=== PATIENT | male | born 1970 | race Caucasian/White ===

== ENCOUNTER 2020-05-06 19:25 | Inpatient (IN) | payer MEDICAID ==
[~2020-05-06] VITALS: Ht 188 cm; Wt 109.9 kg
[2020-05-06 20:39] LABS: BASOPHILS % (AUTO) 0.2 % (0-1); EOSINOPHILS % (AUTO) 0 % (0-6); HEMATOCRIT 39.9 % (42.0-52.0); HEMOGLOBIN 13.8 g/dl (14.0-17.9); LYMPHOCYTES # (AUTO) 1.7 X10'3 (1.1-4.8); LYMPHOCYTES % (AUTO) 7.6 % (21-51); MEAN CORPUSCULAR HEMOGLOBIN 29.8 PG (27.0-31.0); MEAN CORPUSCULAR HGB CONC 34.5 g/dL (33.0-36.5); MEAN CORPUSCULAR VOLUME 86.3 FL (78-98); MEAN PLATELET VOLUME 9.6 FL (7.4-10.4); MONOCYTES # (AUTO) 1.7 X10'3 (0-0.9); MONOCYTES % (AUTO) 7.7 % (2-12); NEUTROPHILS # (AUTO) 18.6 X10'3 (1.8-7.7); NEUTROPHILS % (AUTO) 84.5 % (42-75); PLATELET COUNT 133 X10'3 (140-440); RED BLOOD COUNT 4.62 X10'6 (4.70-6.10); RED CELL DISTRIBUTION WIDTH 13.8 % (11.5-14.5)
[2020-05-06 20:57] LABS: ALANINE AMINOTRANSFERASE 33 U/L (12-78); ALBUMIN 3.1 G/DL (3.4-5.0); ALBUMIN/GLOBULIN RATIO 0.8 (1.1-1.5); ALKALINE PHOSPHATASE 91 IU/L (46-116); ANION GAP 10 (8-16); ASPARTATE AMINO TRANSFERASE 32 U/L (10-37); BILIRUBIN,TOTAL 1.9 MG/DL (0.1-1.0); BLOOD UREA NITROGEN 18 MG/DL (7-18); BUN/CREATININE RATIO 11.8 (5.4-32.0); CALCIUM 8.5 MG/DL (8.5-10.1); CHLORIDE 94 MMOL/L (99-107); CREATININE 1.53 MG/DL (0.60-1.10); GLUCOSE 138 MG/DL (70-104); LIPASE 76 U/L (73-393); SODIUM 128 MMOL/L (135-145); eGFR 48 ML/MIN
[2020-05-06 20:59] LABS: PLATELET ESTIMATE DECREASED; TOTAL CELLS COUNTED 100
[2020-05-06] MEDS ORDERED: CefTRIAXone 2gm/D5W 50ml 50 ML IV ONE (21:00)
[2020-05-06] MEDS ORDERED: normal saline 1000ML IV soln IVB ONE (21:00)
[2020-05-06] MEDS ORDERED: ketorolac tromethamine 15mg/ml inj. IV ONE (21:00)
[2020-05-06 21:03] LABS: POTASSIUM 2.8 MMOL/L (3.5-5.1)
[2020-05-06] MEDS ORDERED: iohexol 300mg/ml 100ml inj. ONE (21:04)
[2020-05-06] MEDS ORDERED: metroNIDAZOLE-Flagyl 750mg/NS 150 ML IV STA (21:23)
[2020-05-06] MEDS ORDERED: potassium Cl 20 mEq SR tablet PO STA (21:23)
[2020-05-06] MEDS ORDERED: potassium 10mEq/100ml NS w/LIDOcaine (10mg/bag) IV ONE (21:25)
[2020-05-06] MEDS ORDERED: potassium CL 10mEq/100ml bag 100 ML IV ONE (21:35)
[2020-05-06 21:59] LABS: CLARITY,URINE CLEAR (Clear); COLOR,URINE YELLOW (Yellow); GLUCOSE, URINE NEGATIVE (Neg); KETONES,URINE NEGATIVE (Neg); LEUKOCYTE ESTERASE ,URINE NEGATIVE (Neg); NITRITES, URINE NEGATIVE (Neg); OCCULT BLOOD,URINE MODERATE (Neg); PROTEIN,URINE 30 mg/dl (Neg); UROBILINOGEN,URINE 0.2 E.U/dL (0.2-1.0)
[2020-05-06 22:04] LABS: UA COLLECTION TYPE CLN CATCH MIDSTREAM
[2020-05-06 22:05] LABS: BACTERIA,URINE NONE SEEN /HPF (Neg); RBC,URINE 0-2 /HPF (0-2); SQUAMOUS EPITHELIAL CELL,UR FEW /LPF (FEW); WBC,URINE 0-4 /HPF (0-4)
[2020-05-06 22:11] LABS: URINE AMPHETAMINE SCREEN NEGATIVE (Neg); URINE BARBITUATE SCREEN NEGATIVE (Neg); URINE BENZODIAZEPINES SCREEN NEGATIVE (Neg); URINE CANNABINOID SCREEN POSITIVE (Neg); URINE COCAINE SCREEN NEGATIVE (Neg); URINE METHADONE SCREEN NEGATIVE (Neg); URINE OPIATE SCREEN NEGATIVE (Neg); URINE PHENCYCLIDINE SCREEN NEGATIVE (Neg)
[2020-05-06] MEDS ORDERED: NO HOME MEDS (22:16)
[2020-05-06] MEDS ORDERED: LIDOcaine 1% W/epiNEPHrine 1:200,000 10ml vial IJ ONE ×2 (23:25)
[2020-05-06] MEDS ORDERED: ondansetron/PF 4mg/2ml inj IV PRN (23:30)
[2020-05-06] MEDS ORDERED: morphine 2 MG/ML inj. syringe IV PRN ×2 (23:30)
[2020-05-06] MEDS ORDERED: magnesium hydroxide 30ml (MOM) UD suspension PO PRN (23:30)
[2020-05-06] MEDS ORDERED: mag hydrox/Alum hydrox/simeth 30ml oral suspension PO PRN (23:30)
[2020-05-06] MEDS: normal saline 1000ml 1,000 ML IV SCH (23:53)
[2020-05-07] MEDS: morphine 4 MG/ML inj SYRINge IV PRN ×2 (03:23→08:34)
[2020-05-07] MEDS: acetaminophen 325mg tablet PO PRN ×2 (03:34→15:41)
--- NOTE | 2020-05-07 05:06 | NUR ---
Patient brought up from ED vs 90/57 HR 88 90% RA temp 98.0
[2020-05-07 05:42] LABS: BASOPHILS % (AUTO) 0.2 % (0-1); EOSINOPHILS % (AUTO) 0 % (0-6); HEMATOCRIT 36.5 % (42.0-52.0); HEMOGLOBIN 12.6 g/dl (14.0-17.9); LYMPHOCYTES # (AUTO) 0.9 X10'3 (1.1-4.8); LYMPHOCYTES % (AUTO) 5.6 % (21-51); MEAN CORPUSCULAR HEMOGLOBIN 29.8 PG (27.0-31.0); MEAN CORPUSCULAR HGB CONC 34.4 g/dL (33.0-36.5); MEAN CORPUSCULAR VOLUME 86.4 FL (78-98); MEAN PLATELET VOLUME 10.1 FL (7.4-10.4); MONOCYTES # (AUTO) 1.4 X10'3 (0-0.9); MONOCYTES % (AUTO) 8.1 % (2-12); NEUTROPHILS # (AUTO) 14.7 X10'3 (1.8-7.7); NEUTROPHILS % (AUTO) 86.1 % (42-75); PLATELET COUNT 104 X10'3 (140-440); RED BLOOD COUNT 4.23 X10'6 (4.70-6.10); RED CELL DISTRIBUTION WIDTH 14.2 % (11.5-14.5); WHITE BLOOD COUNT 17.1 X10'3 (4.5-11.0)
--- NOTE | 2020-05-07 05:48 | NUR ---
Problems reprioritized. Patient report given, questions answered & plan of care reviewed with Gillian BALDWIN.
[2020-05-07 06:07] LABS: ALANINE AMINOTRANSFERASE 27 U/L (12-78); ALBUMIN 2.6 G/DL (3.4-5.0); ALBUMIN/GLOBULIN RATIO 0.7 (1.1-1.5); ALKALINE PHOSPHATASE 74 IU/L (46-116); ANION GAP 10 (8-16); ASPARTATE AMINO TRANSFERASE 29 U/L (10-37); BILIRUBIN,TOTAL 1.1 MG/DL (0.1-1.0); BLOOD UREA NITROGEN 16 MG/DL (7-18); CALCIUM 7.7 MG/DL (8.5-10.1); CHLORIDE 99 MMOL/L (99-107); CREATININE 1.23 MG/DL (0.60-1.10); GLUCOSE 119 MG/DL (70-104); SODIUM 134 MMOL/L (135-145); TOTAL CARBON DIOXIDE 25.1 MMOL/L (24-32); TOTAL PROTEIN 6.1 G/DL (6.4-8.2); eGFR 62 ML/MIN
[2020-05-07 06:10] LABS: POTASSIUM 2.8 MMOL/L (3.5-5.1)
--- NOTE | 2020-05-07 06:51 | NUR ---
Patient in room [facility]. I have received report from NICOLASA Sethi and had the opportunity to ask questions and assume patient care.
--- NOTE | 2020-05-07 06:55 | NUR ---
Patient in room [facility]. I have received report from Jossie BALDWIN and had the opportunity to ask questions and assume patient care.
[2020-05-07 07:00] VITALS: BP 99/70
--- NOTE | 2020-05-07 07:19 | NUR ---
Zofran, Tylenol and Morphine given NOC shift...NOC nurse did not reassessed.
[2020-05-07] MEDS: heparin, porcine 5000 units/ml vial SQ SCH ×2 (08:00→20:00)
[2020-05-07] MEDS: metroNIDAZOLE-Flagyl 500mg/NS 100 ML IV SCH ×2 (08:09→15:40)
[2020-05-07] MEDS: normal saline 1000ml 1,000 ML IV SCH ×2 (08:49→21:33)
[2020-05-07] MEDS ORDERED: HYDROcodone/acetaminophen 5mg/325mg tablet PO PRN (08:50)
--- NOTE | 2020-05-07 09:15 | NUR ---
Student Medication Administration: For this medication-pass time frame, all medication were reviewed, dispensed, administered and documented per hospital policy by Joy Student Nurse.
[2020-05-07 10:50] LABS: PLATELET ESTIMATE DECREASED; TOTAL CELLS COUNTED 100
[2020-05-07 11:50] VITALS: BP 96/61
[2020-05-07 14:25] VITALS: BP 115/65
--- NOTE | 2020-05-07 15:28 | NUR ---
PAGER ID: [phone] MESSAGE: Cesilia Forrest#[id number]- Pt has a fever 102.7, 115/65, 92%, P117. Pt's groin has become hot, hard and red. Painful to touch. Redness marked at 1510. can I get Tylenol for fever, & K protocol. K 3.1. Than you so much! Gillian Ospina
[2020-05-07] MEDS ORDERED: potassium Cl 20 mEq SR tablet PO PRN (16:55)
[2020-05-07] MEDS: K and/or MAG REPLACEMENT MC SCH ×2 (16:55→20:00)
[2020-05-07] MEDS ORDERED: magnesium Cl slow-release 64mg tablet PO PRN (16:55)
[2020-05-07] MEDS ORDERED: potassium CL 10mEq/100ml bag 100 ML IV PRN (16:55)
[2020-05-07] MEDS ORDERED: magnesium 4gm in 100ml NS 100 ML IV PRN (16:55)
[2020-05-07] MEDS: potassium Cl 20 mEq SR tablet PO PRN ×2 (17:13→21:30)
--- NOTE | 2020-05-07 17:35 | NUR ---
Problems reprioritized. Patient report given, questions answered & plan of care reviewed with NICOLASA French.
--- NOTE | 2020-05-07 18:53 | NUR ---
Problems reprioritized. Patient report given, questions answered & plan of care reviewed with Joy Armstrong.
[2020-05-07 20:00] VITALS: BP 102/68
[2020-05-07] MEDS: lactobacillus rhamnosus 10,000 MMU CELLS/CAPSULE PO SCH (21:30)
[2020-05-07] MEDS: CefTRIAXone 2gm/D5W 50ml 50 ML IV SCH (21:30)
[2020-05-07] MEDS: HYDROcodone/acetaminophen 10/325mg tab PO PRN (22:40)
[2020-05-08] MEDS: metroNIDAZOLE-Flagyl 500mg/NS 100 ML IV SCH ×4 (02:02→23:45)
[2020-05-08] MEDS: normal saline 1000ml 1,000 ML IV SCH ×3 (05:29→22:10)
--- NOTE | 2020-05-08 06:06 | NUR ---
Problems reprioritized. Patient report given, questions answered & plan of care reviewed with NICOLASA French.
[2020-05-08 06:07] LABS: BASOPHILS % (AUTO) 0.1 % (0-1); EOSINOPHILS % (AUTO) 0.4 % (0-6); HEMATOCRIT 34.7 % (42.0-52.0); LYMPHOCYTES # (AUTO) 1.1 X10'3 (1.1-4.8); LYMPHOCYTES % (AUTO) 9.7 % (21-51); MEAN CORPUSCULAR HEMOGLOBIN 29.9 PG (27.0-31.0); MEAN CORPUSCULAR HGB CONC 34.6 g/dL (33.0-36.5); MEAN CORPUSCULAR VOLUME 86.6 FL (78-98); MEAN PLATELET VOLUME 10.3 FL (7.4-10.4); MONOCYTES # (AUTO) 0.8 X10'3 (0-0.9); MONOCYTES % (AUTO) 6.9 % (2-12); NEUTROPHILS # (AUTO) 9.7 X10'3 (1.8-7.7); NEUTROPHILS % (AUTO) 82.9 % (42-75); PLATELET COUNT 80 X10'3 (140-440); RED BLOOD COUNT 4.01 X10'6 (4.70-6.10); RED CELL DISTRIBUTION WIDTH 14.1 % (11.5-14.5); WHITE BLOOD COUNT 11.7 X10'3 (4.5-11.0)
[2020-05-08 06:47] LABS: ALANINE AMINOTRANSFERASE 28 U/L (12-78); ALBUMIN 2.2 G/DL (3.4-5.0); ALBUMIN/GLOBULIN RATIO 0.6 (1.1-1.5); ALKALINE PHOSPHATASE 232 IU/L (46-116); ANION GAP 8 (8-16); ASPARTATE AMINO TRANSFERASE 23 U/L (10-37); BILIRUBIN,TOTAL 0.5 MG/DL (0.1-1.0); BLOOD UREA NITROGEN 13 MG/DL (7-18); BUN/CREATININE RATIO 11.7 (5.4-32.0); CHLORIDE 99 MMOL/L (99-107); CREATININE 1.11 MG/DL (0.60-1.10); GLUCOSE 105 MG/DL (70-104); POTASSIUM 3.3 MMOL/L (3.5-5.1); SODIUM 133 MMOL/L (135-145); TOTAL CARBON DIOXIDE 25.9 MMOL/L (24-32); TOTAL PROTEIN 5.8 G/DL (6.4-8.2); eGFR 70 ML/MIN
--- NOTE | 2020-05-08 06:58 | NUR ---
Patient in room [facility]. I have received report from Charis Morocho RN and had the opportunity to ask questions and assume patient care.
--- NOTE | 2020-05-08 07:00 | NUR ---
Patient in room [facility]. I have received report from Charis Morocho and had the opportunity to ask questions and assume patient care.
[2020-05-08 08:00] VITALS: BP 100/60
[2020-05-08] MEDS: K and/or MAG REPLACEMENT MC SCH ×2 (08:00→19:17)
[2020-05-08] MEDS: heparin, porcine 5000 units/ml vial SQ SCH ×2 (08:00→19:36)
[2020-05-08] MEDS: lactobacillus rhamnosus 10,000 MMU CELLS/CAPSULE PO SCH ×2 (09:07→19:31)
[2020-05-08] MEDS: potassium Cl 20 mEq SR tablet PO PRN ×4 (09:08→23:46)
[2020-05-08 11:00] VITALS: BP 99/62
--- NOTE | 2020-05-08 11:33 | NUR ---
Pt states he had abnormal bm when taking shower liquid stool Addendum: 05/08/20 at 1157 by Robert Grijalva STUDENT MAGDY Amended: Links added.
[2020-05-08] MEDS: HYDROcodone/acetaminophen 10/325mg tab PO PRN ×3 (13:13→23:45)
[2020-05-08 18:15] VITALS: BP 103/64
--- NOTE | 2020-05-08 18:37 | NUR ---
Problems reprioritized. Patient report given, questions answered & plan of care reviewed with Barbie Armstrong.
--- NOTE | 2020-05-08 18:52 | NUR ---
Patient in room [facility]. I have received report from NICOLASA French and had the opportunity to ask questions and assume patient care.
[2020-05-08] MEDS: CefTRIAXone 2gm/D5W 50ml 50 ML IV SCH (19:32)
[2020-05-09 00:17] VITALS: BP 97/65
[2020-05-09] MEDS: potassium Cl 20 mEq SR tablet PO PRN ×4 (03:44→20:18)
[2020-05-09 05:30] LABS: BASOPHILS % (AUTO) 0.4 % (0-1); EOSINOPHILS # (AUTO) 0.2 X10'3 (0-0.9); EOSINOPHILS % (AUTO) 2.1 % (0-6); HEMATOCRIT 34.3 % (42.0-52.0); HEMOGLOBIN 11.7 g/dl (14.0-17.9); LYMPHOCYTES # (AUTO) 0.9 X10'3 (1.1-4.8); LYMPHOCYTES % (AUTO) 9.6 % (21-51); MEAN CORPUSCULAR HEMOGLOBIN 30.1 PG (27.0-31.0); MEAN CORPUSCULAR HGB CONC 34.2 g/dL (33.0-36.5); MEAN CORPUSCULAR VOLUME 88.2 FL (78-98); MEAN PLATELET VOLUME 10.9 FL (7.4-10.4); MONOCYTES # (AUTO) 0.6 X10'3 (0-0.9); MONOCYTES % (AUTO) 6.1 % (2-12); NEUTROPHILS % (AUTO) 81.8 % (42-75); PLATELET COUNT 85 X10'3 (140-440); RED BLOOD COUNT 3.88 X10'6 (4.70-6.10); RED CELL DISTRIBUTION WIDTH 14.4 % (11.5-14.5); WHITE BLOOD COUNT 9.8 X10'3 (4.5-11.0)
[2020-05-09 05:40] LABS: ALANINE AMINOTRANSFERASE 27 U/L (12-78); ALBUMIN 2.1 G/DL (3.4-5.0); ALBUMIN/GLOBULIN RATIO 0.6 (1.1-1.5); ALKALINE PHOSPHATASE 85 IU/L (46-116); ANION GAP 2 (8-16); ASPARTATE AMINO TRANSFERASE 22 U/L (10-37); BILIRUBIN,TOTAL 0.3 MG/DL (0.1-1.0); BLOOD UREA NITROGEN 9 MG/DL (7-18); BUN/CREATININE RATIO 8.7 (5.4-32.0); CALCIUM 8.1 MG/DL (8.5-10.1); CHLORIDE 103 MMOL/L (99-107); CREATININE 1.03 MG/DL (0.60-1.10); GLUCOSE 124 MG/DL (70-104); POTASSIUM 3.3 MMOL/L (3.5-5.1); SODIUM 135 MMOL/L (135-145); TOTAL CARBON DIOXIDE 30.5 MMOL/L (24-32); TOTAL PROTEIN 5.6 G/DL (6.4-8.2); eGFR 76 ML/MIN
--- NOTE | 2020-05-09 06:39 | NUR ---
Problems reprioritized. Patient report given, questions answered & plan of care reviewed with NICOLASA Gill.
[2020-05-09 07:00] VITALS: BP 103/59
[2020-05-09 07:15] LABS: ANISOCYTOSIS 1+; PLATELET ESTIMATE DECREASED; TOTAL CELLS COUNTED 100
[2020-05-09] MEDS: heparin, porcine 5000 units/ml vial SQ SCH ×2 (08:00→19:41)
[2020-05-09] MEDS: HYDROcodone/acetaminophen 10/325mg tab PO PRN ×2 (08:24→15:47)
[2020-05-09] MEDS: lactobacillus rhamnosus 10,000 MMU CELLS/CAPSULE PO SCH ×2 (08:25→20:18)
[2020-05-09] MEDS: metroNIDAZOLE-Flagyl 500mg/NS 100 ML IV SCH (08:25)
[2020-05-09] MEDS: normal saline 1000ml 1,000 ML IV SCH ×2 (08:25→20:23)
[2020-05-09] MEDS: K and/or MAG REPLACEMENT MC SCH ×2 (08:27→18:44)
[2020-05-09] MEDS: morphine 4 MG/ML inj SYRINge IV PRN ×2 (10:00→17:39)
--- NOTE | 2020-05-09 10:00 | NUR ---
Pt. c/o several episode of diarrhea. Stated the RN assessed his BM yesterday and "thought it wasn't c-diff". made aware. Pt. has had 2 BMs today. Did not let RN assess. Educated. Pt. states BMs liquid brown. states to continue to monitor and collect sample for culture.
[2020-05-09 11:00] VITALS: BP 94/56
[2020-05-09 11:28] LABS: HEMOGLOBIN A1C 5.4 % (4.5-6.2)
[2020-05-09 11:37] LABS: CHOLESTEROL 64 MG/DL (0-200); HDL CHOLESTEROL 8 MG/DL (35-60); LDL CHOLESTEROL 33 MG/DL (50-100); TRIGLYCERIDES 104 MG/DL (20-135)
--- NOTE | 2020-05-09 12:04 | NUR ---
scrotum tissue appears to be peeling Addendum: 05/09/20 at 1210 by Robert Grijalva STUDENT MAGDY Amended: Links added.
--- NOTE | 2020-05-09 15:39 | NUR ---
Wound cultures collected and dropped off at lab.
[2020-05-09] MEDS ORDERED: metroNIDAZOLE 500mg tablet PO SCH (16:00)
[2020-05-09 18:15] VITALS: BP 104/58
--- NOTE | 2020-05-09 18:31 | NUR ---
Patient in room [facility]. I have received report from NICOLASA Gill and had the opportunity to ask questions and assume patient care.
--- NOTE | 2020-05-09 18:31 | NUR ---
Gave report to Barbie BALDWIN.
[2020-05-09] MEDS: mineral oil/petrolatum, white cream 113gm jar TP SCH (20:23)
[2020-05-09] MEDS: CefTRIAXone 2gm/D5W 50ml 50 ML IV SCH (20:23)
[2020-05-09] MEDS: CEFEPIME 2gm in D5W 50mL 50 ML IV SCH (21:24)
[2020-05-09] MEDS: clindamycin 300mg/D5W 50mL 50 ML IV SCH (21:55)
[2020-05-09] MEDS: linezolid 600mg/300ml PREMIX 300 ML IV SCH (22:54)
[2020-05-10] MEDS: morphine 4 MG/ML inj SYRINge IV PRN ×5 (00:02→22:44)
[2020-05-10 00:24] VITALS: BP 96/62
[2020-05-10] MEDS: clindamycin 300mg/D5W 50mL 50 ML IV SCH ×4 (02:36→19:07)
--- NOTE | 2020-05-10 06:00 | NUR ---
Patient in room [facility]. I have received report from NICOLASA Valentin and had the opportunity to ask questions and assume patient care.
[2020-05-10 06:17] LABS: ALANINE AMINOTRANSFERASE 21 U/L (12-78); ALBUMIN/GLOBULIN RATIO 0.5 (1.1-1.5); ALKALINE PHOSPHATASE 66 IU/L (46-116); ANION GAP 8 (8-16); ASPARTATE AMINO TRANSFERASE 25 U/L (10-37); BILIRUBIN,TOTAL 0.3 MG/DL (0.1-1.0); BLOOD UREA NITROGEN 9 MG/DL (7-18); CALCIUM 8.1 MG/DL (8.5-10.1); CHLORIDE 106 MMOL/L (99-107); GLUCOSE 124 MG/DL (70-104); MAGNESIUM 1.9 MG/DL (1.5-2.4); PHOSPHORUS 2.2 MG/DL (2.3-4.5); SODIUM 139 MMOL/L (135-145); TOTAL CARBON DIOXIDE 24.7 MMOL/L (24-32); TOTAL PROTEIN 5.7 G/DL (6.4-8.2); eGFR 89 ML/MIN
--- NOTE | 2020-05-10 06:36 | NUR ---
Problems reprioritized. Patient report given, questions answered & plan of care reviewed with NICOLASA Gomez.
[2020-05-10 06:45] LABS: BASOPHILS % (AUTO) 0.3 % (0-1); EOSINOPHILS # (AUTO) 0.2 X10'3 (0-0.9); HEMATOCRIT 34.4 % (42.0-52.0); HEMOGLOBIN 11.8 g/dl (14.0-17.9); LYMPHOCYTES % (AUTO) 11.9 % (21-51); MEAN CORPUSCULAR HEMOGLOBIN 30.1 PG (27.0-31.0); MEAN CORPUSCULAR HGB CONC 34.2 g/dL (33.0-36.5); MEAN CORPUSCULAR VOLUME 87.8 FL (78-98); MEAN PLATELET VOLUME 10.5 FL (7.4-10.4); MONOCYTES # (AUTO) 0.8 X10'3 (0-0.9); MONOCYTES % (AUTO) 9.5 % (2-12); NEUTROPHILS # (AUTO) 6.1 X10'3 (1.8-7.7); NEUTROPHILS % (AUTO) 75.3 % (42-75); PLATELET COUNT 105 X10'3 (140-440); RED BLOOD COUNT 3.91 X10'6 (4.70-6.10); RED CELL DISTRIBUTION WIDTH 14.9 % (11.5-14.5); WHITE BLOOD COUNT 8.1 X10'3 (4.5-11.0)
[2020-05-10 07:43] VITALS: BP 101/58
[2020-05-10] MEDS: normal saline 1000ml 1,000 ML IV SCH ×3 (07:46→22:45)
[2020-05-10] MEDS: lactobacillus rhamnosus 10,000 MMU CELLS/CAPSULE PO SCH ×2 (07:46→19:06)
[2020-05-10] MEDS: heparin, porcine 5000 units/ml vial SQ SCH ×2 (07:48→19:07)
[2020-05-10] MEDS: K and/or MAG REPLACEMENT MC SCH ×2 (08:00→18:51)
[2020-05-10] MEDS: mineral oil/petrolatum, white cream 113gm jar TP SCH ×2 (08:01→19:09)
[2020-05-10] MEDS: linezolid 600mg/300ml PREMIX 300 ML IV SCH (10:24)
[2020-05-10 11:58] VITALS: BP 98/60
[2020-05-10] MEDS: CEFEPIME 2gm in D5W 50mL 50 ML IV SCH ×2 (13:17→21:13)
--- NOTE | 2020-05-10 18:05 | NUR ---
Patient in room [facility]. I have received report from NICOLASA Gomez and had the opportunity to ask questions and assume patient care.
[2020-05-10 18:15] VITALS: BP 98/57
--- NOTE | 2020-05-10 18:29 | NUR ---
Problems reprioritized. Patient report given, questions answered & plan of care reviewed with NICOLASA Valentin.
[2020-05-10] MEDS: linezolid 600mg tablet PO SCH (19:06)
[2020-05-11 00:37] VITALS: BP 101/58
[2020-05-11] MEDS: clindamycin 300mg/D5W 50mL 50 ML IV SCH ×4 (01:18→19:35)
[2020-05-11 05:38] LABS: BASOPHILS % (AUTO) 0.5 % (0-1); EOSINOPHILS # (AUTO) 0.3 X10'3 (0-0.9); EOSINOPHILS % (AUTO) 4.8 % (0-6); HEMATOCRIT 34.7 % (42.0-52.0); HEMOGLOBIN 11.7 g/dl (14.0-17.9); LYMPHOCYTES % (AUTO) 18.2 % (21-51); MEAN CORPUSCULAR HEMOGLOBIN 29.7 PG (27.0-31.0); MEAN CORPUSCULAR HGB CONC 33.6 g/dL (33.0-36.5); MEAN CORPUSCULAR VOLUME 88.4 FL (78-98); MEAN PLATELET VOLUME 10.6 FL (7.4-10.4); MONOCYTES # (AUTO) 0.7 X10'3 (0-0.9); MONOCYTES % (AUTO) 11.7 % (2-12); NEUTROPHILS # (AUTO) 3.7 X10'3 (1.8-7.7); NEUTROPHILS % (AUTO) 64.8 % (42-75); PLATELET COUNT 123 X10'3 (140-440); RED BLOOD COUNT 3.93 X10'6 (4.70-6.10); RED CELL DISTRIBUTION WIDTH 14.7 % (11.5-14.5); WHITE BLOOD COUNT 5.8 X10'3 (4.5-11.0)
[2020-05-11 05:49] LABS: ALANINE AMINOTRANSFERASE 22 U/L (12-78); ALBUMIN 2.1 G/DL (3.4-5.0); ALBUMIN/GLOBULIN RATIO 0.6 (1.1-1.5); ALKALINE PHOSPHATASE 54 IU/L (46-116); ANION GAP 8 (8-16); ASPARTATE AMINO TRANSFERASE 19 U/L (10-37); BILIRUBIN,TOTAL 0.3 MG/DL (0.1-1.0); BLOOD UREA NITROGEN 7 MG/DL (7-18); BUN/CREATININE RATIO 7.2 (5.4-32.0); CALCIUM 8.1 MG/DL (8.5-10.1); CHLORIDE 107 MMOL/L (99-107); CREATININE 0.97 MG/DL (0.60-1.10); GLUCOSE 112 MG/DL (70-104); PHOSPHORUS 3.3 MG/DL (2.3-4.5); POTASSIUM 3.6 MMOL/L (3.5-5.1); SODIUM 144 MMOL/L (135-145); TOTAL CARBON DIOXIDE 28.9 MMOL/L (24-32); TOTAL PROTEIN 5.8 G/DL (6.4-8.2); eGFR 82 ML/MIN
--- NOTE | 2020-05-11 06:00 | NUR ---
Patient in room [facility]. I have received report from NICOLASA Canas and had the opportunity to ask questions and assume patient care. Addendum: 05/11/20 at 1319 by Patricia Peterson RN Addendum: Barbie BALDWIN.
[2020-05-11] MEDS: morphine 4 MG/ML inj SYRINge IV PRN ×4 (06:11→21:55)
[2020-05-11 06:48] LABS: LARGE PLATELETS FEW; PLATELET ESTIMATE DECREASED
--- NOTE | 2020-05-11 07:02 | NUR ---
Problems reprioritized. Patient report given, questions answered & plan of care reviewed with NICOLASA Gomez.
[2020-05-11] MEDS: normal saline 1000ml 1,000 ML IV SCH ×2 (07:26→19:37)
[2020-05-11] MEDS: linezolid 600mg tablet PO SCH ×2 (07:27→19:35)
[2020-05-11] MEDS: lactobacillus rhamnosus 10,000 MMU CELLS/CAPSULE PO SCH ×2 (07:27→19:35)
[2020-05-11] MEDS: heparin, porcine 5000 units/ml vial SQ SCH ×2 (07:28→19:36)
[2020-05-11] MEDS: mineral oil/petrolatum, white cream 113gm jar TP SCH ×2 (07:29→19:37)
[2020-05-11] MEDS: K and/or MAG REPLACEMENT MC SCH ×2 (07:33→19:50)
[2020-05-11 08:00] VITALS: BP 112/80
[2020-05-11] MEDS: CEFEPIME 2gm in D5W 50mL 50 ML IV SCH ×2 (08:22→19:40)
[2020-05-11 12:59] VITALS: BP 137/71
--- NOTE | 2020-05-11 15:49 | NUR ---
Zyvox consult: Pt admit w/ sepsis secondary to severe scrotal/L groin cellulitis and MANDY secondary to sepsis now resolved per MD. Pt PO 100% avg regular meals. Pt seen by RD for written/verbal zyvox ed w/ RD contact information provided. Pt is agreeable to double meats BIDLD and double eggs at breakfast; dietary notified. [facility] 05/11; just prior to RD visit per pt. Will continue to monitor. Rec: 1. continue regular diet 2. double eggs at breakfast; double meats BIDLD 3. bowel care as needed 4. wt per rx Addendum: 05/11/20 at [address] Amended: Links added.
[2020-05-11 18:00] VITALS: BP 126/75
--- NOTE | 2020-05-11 18:08 | NUR ---
Problems reprioritized. Patient report given, questions answered & plan of care reviewed with NICOLASA Mayer.
--- NOTE | 2020-05-11 18:11 | NUR ---
Patient was provided with education on MRSA.
--- NOTE | 2020-05-11 18:19 | NUR ---
Patient in room [facility]. I have received report from THAI BALDWIN and had the opportunity to ask questions and assume patient care.
[2020-05-11] MEDS: HYDROcodone/acetaminophen 10/325mg tab PO PRN (19:35)
[2020-05-12 00:25] VITALS: BP 134/68
[2020-05-12] MEDS: clindamycin 300mg/D5W 50mL 50 ML IV SCH ×4 (02:14→21:10)
[2020-05-12] MEDS: morphine 4 MG/ML inj SYRINge IV PRN ×5 (03:58→21:55)
[2020-05-12] MEDS: normal saline 1000ml 1,000 ML IV SCH ×2 (04:02→17:45)
[2020-05-12 05:47] LABS: MAGNESIUM 2.1 MG/DL (1.5-2.4); PHOSPHORUS 3.4 MG/DL (2.3-4.5)
--- NOTE | 2020-05-12 06:53 | NUR ---
Problems reprioritized. Patient report given, questions answered & plan of care reviewed with .
--- NOTE | 2020-05-12 06:53 | NUR ---
Problems reprioritized. Patient report given, questions answered & plan of care reviewed with ZABRINA BALDWIN.
--- NOTE | 2020-05-12 06:56 | NUR ---
Patient in room [facility]. I have received report from CORIE BALDWIN and had the opportunity to ask questions and assume patient care.
[2020-05-12 07:00] VITALS: BP 129/79
[2020-05-12] MEDS: K and/or MAG REPLACEMENT MC SCH ×2 (08:00→20:00)
[2020-05-12] MEDS: lactobacillus rhamnosus 10,000 MMU CELLS/CAPSULE PO SCH ×2 (08:10→20:14)
[2020-05-12] MEDS: CEFEPIME 2gm in D5W 50mL 50 ML IV SCH ×2 (08:10→20:14)
[2020-05-12] MEDS: linezolid 600mg tablet PO SCH ×2 (08:10→21:10)
[2020-05-12] MEDS: heparin, porcine 5000 units/ml vial SQ SCH ×2 (08:10→20:15)
[2020-05-12] MEDS: mineral oil/petrolatum, white cream 113gm jar TP SCH ×2 (08:11→21:10)
[2020-05-12 11:00] VITALS: BP 115/69
[2020-05-12] MEDS: HYDROcodone/acetaminophen 10/325mg tab PO PRN ×2 (14:45→20:14)
--- NOTE | 2020-05-12 17:26 | NUR ---
patient very upset and verbal on rounding 0800hrs, medicated immediately with Morphine with effect. patient seen by Dr waters and by wound care. orders in for wound care. patient showered and then dressing applied. All ABX continued . picture taken of lower left thigh wound, draining large amounts of serous fluid. . will continue to monitor.
--- NOTE | 2020-05-12 18:37 | NUR ---
Problems reprioritized. Patient report given, questions answered & plan of care reviewed with Matthew BALDWIN.
[2020-05-12 20:00] VITALS: BP 119/76
[2020-05-13] VITALS: BP 122/69
[2020-05-13] MEDS: clindamycin 300mg/D5W 50mL 50 ML IV SCH ×3 (03:26→14:53)
[2020-05-13] MEDS: morphine 4 MG/ML inj SYRINge IV PRN ×5 (03:32→22:58)
[2020-05-13] MEDS: normal saline 1000ml 1,000 ML IV SCH ×3 (05:58→22:58)
[2020-05-13 06:14] LABS: MAGNESIUM 2.1 MG/DL (1.5-2.4)
[2020-05-13 07:00] VITALS: BP 117/78
[2020-05-13] MEDS: linezolid 600mg tablet PO SCH ×2 (07:56→19:55)
[2020-05-13] MEDS: CEFEPIME 2gm in D5W 50mL 50 ML IV SCH (07:56)
[2020-05-13] MEDS: lactobacillus rhamnosus 10,000 MMU CELLS/CAPSULE PO SCH ×2 (07:56→19:55)
[2020-05-13] MEDS: K and/or MAG REPLACEMENT MC SCH ×2 (08:00→18:39)
[2020-05-13] MEDS: heparin, porcine 5000 units/ml vial SQ SCH ×2 (08:09→19:55)
[2020-05-13] MEDS: mineral oil/petrolatum, white cream 113gm jar TP SCH ×2 (08:10→21:33)
[2020-05-13 11:00] VITALS: BP 128/78
[2020-05-13] MEDS: HYDROcodone/acetaminophen 10/325mg tab PO PRN ×2 (16:10→21:32)
--- NOTE | 2020-05-13 18:41 | NUR ---
Problems reprioritized. Patient report given, questions answered & plan of care reviewed with NICOLASA Santos.
--- NOTE | 2020-05-13 19:08 | NUR ---
Patient in room [facility]. I have received report from NICOLASA Scherer and had the opportunity to ask questions and assume patient care. Addendum: 05/13/20 at 1909 by Danielle Hampton RN Amended: Links added.
[2020-05-13 20:00] VITALS: BP 121/81
[2020-05-14] VITALS (28 sets, daily range): BP systolic 94–163; BP diastolic 53–99
[2020-05-14 05:23] LABS: PARTIAL THROMBOPLASTIN TIME 25 SECONDS (22-32)
[2020-05-14 05:36] LABS: MAGNESIUM 2.1 MG/DL (1.5-2.4); PHOSPHORUS 3.4 MG/DL (2.3-4.5)
--- NOTE | 2020-05-14 06:07 | NUR ---
Problems reprioritized. Patient report given, questions answered & plan of care reviewed with NICOLASA Scherer. Addendum: 05/14/20 at 0608 by Danielle Hampton RN Amended: Links added.
[2020-05-14] MEDS: HYDROcodone/acetaminophen 10/325mg tab PO PRN ×3 (06:42→22:55)
[2020-05-14] MEDS: heparin, porcine 5000 units/ml vial SQ SCH ×2 (08:00→19:49)
[2020-05-14] MEDS: K and/or MAG REPLACEMENT MC SCH ×2 (08:00→20:00)
[2020-05-14] MEDS: linezolid 600mg tablet PO SCH ×2 (08:28→19:49)
[2020-05-14] MEDS: lactobacillus rhamnosus 10,000 MMU CELLS/CAPSULE PO SCH ×2 (08:29→19:49)
[2020-05-14] MEDS: mineral oil/petrolatum, white cream 113gm jar TP SCH ×2 (08:30→20:00)
[2020-05-14] MEDS: normal saline 1000ml 1,000 ML IV SCH ×3 (10:10→19:49)
[2020-05-14 11:09] LABS: BASOPHILS % (AUTO) 0.5 % (0-1); EOSINOPHILS # (AUTO) 0.2 X10'3 (0-0.9); EOSINOPHILS % (AUTO) 2.9 % (0-6); HEMOGLOBIN 13.5 g/dl (14.0-17.9); LYMPHOCYTES # (AUTO) 1.7 X10'3 (1.1-4.8); LYMPHOCYTES % (AUTO) 24.2 % (21-51); MEAN CORPUSCULAR HEMOGLOBIN 29.6 PG (27.0-31.0); MEAN CORPUSCULAR HGB CONC 33.7 g/dL (33.0-36.5); MEAN CORPUSCULAR VOLUME 87.8 FL (78-98); MEAN PLATELET VOLUME 8.8 FL (7.4-10.4); MONOCYTES # (AUTO) 0.6 X10'3 (0-0.9); MONOCYTES % (AUTO) 8.6 % (2-12); NEUTROPHILS # (AUTO) 4.6 X10'3 (1.8-7.7); NEUTROPHILS % (AUTO) 63.8 % (42-75); PLATELET COUNT 196 X10'3 (140-440); RED BLOOD COUNT 4.55 X10'6 (4.70-6.10); RED CELL DISTRIBUTION WIDTH 14.4 % (11.5-14.5); WHITE BLOOD COUNT 7.2 X10'3 (4.5-11.0)
[2020-05-14 12:36] LABS: HIV ANTIBODY 1&2 RAPID NON-REACTIVE (Neg)
--- NOTE | 2020-05-14 14:24 | NUR ---
Report given to NICOLASA Townsend in recovery regarding this patient. Blood glucose was 91, VSS, patient was showered and wiped down with torey wipes. Pre-operative checklist completed.
[2020-05-14] MEDS ORDERED: ondansetron/PF 4mg/2ml inj IV PRN (14:40)
[2020-05-14] MEDS ORDERED: ringers solution, lacted 1,000 ML IV SCH (14:40)
[2020-05-14] MEDS ORDERED: morphine 2 MG/ML inj. syringe IV PRN (14:40)
[2020-05-14] MEDS ORDERED: proCHLORperazine 10 MG/2 ml inj IV PRN (14:40)
[2020-05-14] MEDS ORDERED: meperidine/PF 25mg/ml syringe IV PRN ×2 (14:40)
[2020-05-14] MEDS ORDERED: sevoflurane 250ml liquid IH ONE (14:41)
[2020-05-14] MEDS ORDERED: fentaNYL/PF 50MCG/1 ML 2ML syringe ONE ×2 (14:43→15:08)
[2020-05-14] MEDS ORDERED: midazolam 2 mg/2 ml injection ONE (14:44)
[2020-05-14] MEDS ORDERED: ketamine 50mg/5ml syringe ONE (15:00)
[2020-05-14] MEDS ORDERED: LIDOcaine 2% (20mg/ml) 5ml vial ONE (15:19)
[2020-05-14] MEDS ORDERED: ondansetron/PF 4mg/2ml inj ONE (15:19)
[2020-05-14] MEDS ORDERED: propofol inj 20 ML IV ONE (15:19)
[2020-05-14] MEDS ORDERED: dexamethasone sod phosphate 4mg/ml inj. ONE (15:19)
[2020-05-14] MEDS ORDERED: meperidine/PF 25mg/ml syringe ONE (15:37)
--- NOTE | 2020-05-14 15:43 | NUR ---
RECEIVED FROM OR VIA BED ACCOMPANIED BY ANESTHESIOLOGIST DR ALMODOVAR, REPORT GIVEN. PT AWAKE AND SCREAMING, WRITHING IN PAIN, STATES WELL OVER 10. 22 GAUGE PIV L WRIST PATENT AND RUNNING NS AT 100 ML/HR. L GROIN DRESSING OF KERLIX AND 4X4 CDI. SKIN PINK AND WARM, ABD SOFT, MUELLER, P PULSES GOOD.
[2020-05-14] MEDS: meperidine/PF 25mg/ml syringe IV PRN ×4 (15:57→16:36)
[2020-05-14] MEDS: morphine 4 MG/ML inj SYRINge IV PRN ×3 (16:05→16:47)
[2020-05-14] MEDS ORDERED: acetaminophen 1,000mg/100ml IV 100 ML IV PRN (16:30)
[2020-05-14] MEDS ORDERED: HYDROmorphone inj. 0.5 MG/0.5 ML DISP.SYRIN IV PRN ×2 (16:30)
[2020-05-14] MEDS ORDERED: MIDAZolam 5mg/ml 2ml vial IV ONE (16:30)
--- NOTE | 2020-05-14 17:36 | NUR ---
Received report from NICOLASA Corral in recovery. patient to return to bed 352.
--- NOTE | 2020-05-14 17:53 | NUR ---
TRANSPORTED VIA BED ACCOMPANIED BY MYSELF, REPORT GIVEN. 22 GAUGE PIV L WRIST PATENT AND RUNNING NS AT 100 ML/HR. PT RESTING COMFORTABLY WITH PAIN LEVEL AT A 4 . L GROIN DRESSING CDI. TOLERATING FLUIDS, VSS.
--- NOTE | 2020-05-14 17:56 | NUR ---
PATIENT RETURNED FROM SURGERY INTO ROOM 352. Patient pleasant, vital signs stable as follows temp 96.7 F, BP 128/85, HR 68, oxygen saturation 96% on room air. Will continue to monitor.
--- NOTE | 2020-05-14 20:45 | NUR ---
Patient in room [facility]. I have received report from NICOLASA Scherer and had the opportunity to ask questions and assume patient care. Addendum: 05/14/20 at 2044 by Danielle Hampton RN Amended: Links added.
[2020-05-15 00:10] VITALS: BP 126/71
--- NOTE | 2020-05-15 06:26 | NUR ---
Problems reprioritized. Patient report given, questions answered & plan of care reviewed with NICOLASA Urbina. Addendum: 05/15/20 at 625 by Danielle Hampton RN Amended: Links added.
--- NOTE | 2020-05-15 06:40 | NUR ---
Patient in room [facility]. I have received report from NICOLASA Santos and had the opportunity to ask questions and assume patient care.
[2020-05-15 07:22] VITALS: BP 115/72
[2020-05-15] MEDS: linezolid 600mg tablet PO SCH ×2 (07:35→20:12)
[2020-05-15] MEDS: heparin, porcine 5000 units/ml vial SQ SCH ×2 (07:35→20:13)
[2020-05-15] MEDS: HYDROcodone/acetaminophen 10/325mg tab PO PRN ×3 (07:36→20:26)
[2020-05-15] MEDS: lactobacillus rhamnosus 10,000 MMU CELLS/CAPSULE PO SCH ×2 (07:36→20:12)
[2020-05-15] MEDS: mineral oil/petrolatum, white cream 113gm jar TP SCH ×2 (07:40→20:13)
[2020-05-15] MEDS: K and/or MAG REPLACEMENT MC SCH ×2 (08:00→20:00)
[2020-05-15 11:00] VITALS: BP 123/69
--- NOTE | 2020-05-15 11:02 | NUR ---
Reassessment: Pt s/p I&D of groin abscess 05/14. Pt continues with 75-100% PO intake while receiving double protein TID meeting nutrient needs with adequate protein to support skin integrity and promote wound healing. Cellulitis improving per MD note. LBM 05/12. No further nutrition intervention implemented at this time. Will continue to follow. Rec: 1. continue regular diet 2. double eggs at breakfast; double meats BIDLD 3. bowel care as needed 4. wt per rx Addendum: 05/15/20 at [address] Amended: Links added.
[2020-05-15 11:51] VITALS: BP 123/69
[2020-05-15] MEDS: normal saline 1000ml 1,000 ML IV SCH ×2 (15:14→23:52)
[2020-05-15 18:15] VITALS: BP 124/67
--- NOTE | 2020-05-15 18:23 | NUR ---
Problems reprioritized. Patient report given, questions answered & plan of care reviewed with NICOLASA Valentin.
--- NOTE | 2020-05-15 18:30 | NUR ---
Patient in room [facility]. I have received report from NICOLASA Urbina and had the opportunity to ask questions and assume patient care.
[2020-05-16] VITALS: BP 117/68
[2020-05-16] MEDS: HYDROcodone/acetaminophen 10/325mg tab PO PRN ×4 (00:48→20:39)
--- NOTE | 2020-05-16 06:15 | NUR ---
Patient in room [facility]. I have received report from NICOLASA Valentin and had the opportunity to ask questions and assume patient care.
[2020-05-16 06:30] VITALS: BP 127/69
--- NOTE | 2020-05-16 06:31 | NUR ---
Problems reprioritized. Patient report given, questions answered & plan of care reviewed with NICOLASA Bangura.
[2020-05-16] MEDS: K and/or MAG REPLACEMENT MC SCH ×2 (07:13→19:27)
[2020-05-16] MEDS: heparin, porcine 5000 units/ml vial SQ SCH ×2 (07:49→20:39)
[2020-05-16] MEDS: lactobacillus rhamnosus 10,000 MMU CELLS/CAPSULE PO SCH ×2 (07:49→20:39)
[2020-05-16] MEDS: linezolid 600mg tablet PO SCH ×2 (07:49→20:39)
[2020-05-16] MEDS: mineral oil/petrolatum, white cream 113gm jar TP SCH ×2 (07:52→20:42)
[2020-05-16] MEDS: normal saline 1000ml 1,000 ML IV SCH ×2 (10:44→20:28)
[2020-05-16 11:00] VITALS: BP 141/76
[2020-05-16] MEDS: morphine 4 MG/ML inj SYRINge IV PRN ×2 (11:06→17:28)
[2020-05-16 18:00] VITALS: BP 125/78
--- NOTE | 2020-05-16 18:10 | NUR ---
Problems reprioritized. Patient report given, questions answered & plan of care reviewed with NICOLASA Valentin.
--- NOTE | 2020-05-16 18:30 | NUR ---
Patient in room [facility]. I have received report from NICOLASA Bangura and had the opportunity to ask questions and assume patient care.
[2020-05-17 00:15] VITALS: BP 123/78
[2020-05-17] MEDS: morphine 4 MG/ML inj SYRINge IV PRN (03:56)
[2020-05-17] MEDS: normal saline 1000ml 1,000 ML IV SCH ×2 (04:05→13:59)
[2020-05-17 05:08] LABS: BASOPHILS % (AUTO) 0.4 % (0-1); EOSINOPHILS # (AUTO) 0.2 X10'3 (0-0.9); EOSINOPHILS % (AUTO) 2.2 % (0-6); HEMATOCRIT 37.4 % (42.0-52.0); HEMOGLOBIN 12.3 g/dl (14.0-17.9); LYMPHOCYTES # (AUTO) 1.9 X10'3 (1.1-4.8); LYMPHOCYTES % (AUTO) 27.4 % (21-51); MEAN CORPUSCULAR HEMOGLOBIN 29.2 PG (27.0-31.0); MEAN CORPUSCULAR HGB CONC 32.9 g/dL (33.0-36.5); MEAN CORPUSCULAR VOLUME 88.7 FL (78-98); MEAN PLATELET VOLUME 8.2 FL (7.4-10.4); MONOCYTES # (AUTO) 0.5 X10'3 (0-0.9); MONOCYTES % (AUTO) 7.4 % (2-12); NEUTROPHILS # (AUTO) 4.3 X10'3 (1.8-7.7); NEUTROPHILS % (AUTO) 62.6 % (42-75); PLATELET COUNT 186 X10'3 (140-440); RED BLOOD COUNT 4.22 X10'6 (4.70-6.10); RED CELL DISTRIBUTION WIDTH 14.7 % (11.5-14.5); WHITE BLOOD COUNT 6.8 X10'3 (4.5-11.0)
[2020-05-17 05:19] LABS: ALANINE AMINOTRANSFERASE 25 U/L (12-78); ALBUMIN 2.5 G/DL (3.4-5.0); ALBUMIN/GLOBULIN RATIO 0.6 (1.1-1.5); ALKALINE PHOSPHATASE 56 IU/L (46-116); ANION GAP 5 (8-16); ASPARTATE AMINO TRANSFERASE 21 U/L (10-37); BILIRUBIN,TOTAL 0.2 MG/DL (0.1-1.0); BLOOD UREA NITROGEN 14 MG/DL (7-18); BUN/CREATININE RATIO 12.5 (5.4-32.0); CALCIUM 8.5 MG/DL (8.5-10.1); CHLORIDE 109 MMOL/L (99-107); CREATININE 1.12 MG/DL (0.60-1.10); GLUCOSE 104 MG/DL (70-104); MAGNESIUM 1.8 MG/DL (1.5-2.4); SODIUM 145 MMOL/L (135-145); TOTAL CARBON DIOXIDE 30.6 MMOL/L (24-32); TOTAL PROTEIN 6.5 G/DL (6.4-8.2); eGFR 69 ML/MIN
--- NOTE | 2020-05-17 06:15 | NUR ---
Patient in room [facility]. I have received report from NICOLASA Valentin and had the opportunity to ask questions and assume patient care.
--- NOTE | 2020-05-17 06:24 | NUR ---
Problems reprioritized. Patient report given, questions answered & plan of care reviewed with NICOLASA Bangura.
[2020-05-17 06:30] VITALS: BP 130/77
[2020-05-17] MEDS: K and/or MAG REPLACEMENT MC SCH ×2 (06:55→19:08)
[2020-05-17 07:06] LABS: ANISOCYTOSIS 1+; PLATELET ESTIMATE NORMAL; TOTAL CELLS COUNTED 100
[2020-05-17] MEDS: lactobacillus rhamnosus 10,000 MMU CELLS/CAPSULE PO SCH ×2 (07:57→19:10)
[2020-05-17] MEDS: linezolid 600mg tablet PO SCH ×2 (07:57→19:10)
[2020-05-17] MEDS: HYDROcodone/acetaminophen 10/325mg tab PO PRN ×4 (07:57→23:45)
[2020-05-17] MEDS: heparin, porcine 5000 units/ml vial SQ SCH ×2 (07:57→19:10)
[2020-05-17] MEDS: mineral oil/petrolatum, white cream 113gm jar TP SCH ×2 (08:00→19:11)
[2020-05-17 11:00] VITALS: BP 132/78
[2020-05-17 18:00] VITALS: BP 128/72
--- NOTE | 2020-05-17 18:10 | NUR ---
Problems reprioritized. Patient report given, questions answered & plan of care reviewed with NICOLASA Valentin.
--- NOTE | 2020-05-17 18:34 | NUR ---
Patient in room [facility]. I have received report from NICOLASA Bangura and had the opportunity to ask questions and assume patient care.
[2020-05-18] VITALS: BP 108/63
--- NOTE | 2020-05-18 06:05 | NUR ---
Patient in room [facility] 352. I have received report from NICOLASA FINNEY and had the opportunity to ask questions and assume patient care.
--- NOTE | 2020-05-18 06:26 | NUR ---
Problems reprioritized. Patient report given, questions answered & plan of care reviewed with Alice Cornell RN.
[2020-05-18 07:00] VITALS: BP 128/76
[2020-05-18] MEDS: linezolid 600mg tablet PO SCH ×2 (07:36→20:32)
[2020-05-18] MEDS: heparin, porcine 5000 units/ml vial SQ SCH ×2 (07:36→20:32)
[2020-05-18] MEDS: lactobacillus rhamnosus 10,000 MMU CELLS/CAPSULE PO SCH ×2 (07:36→20:32)
[2020-05-18] MEDS: HYDROcodone/acetaminophen 10/325mg tab PO PRN ×4 (07:37→20:32)
[2020-05-18] MEDS: mineral oil/petrolatum, white cream 113gm jar TP SCH ×2 (07:39→20:34)
[2020-05-18] MEDS: K and/or MAG REPLACEMENT MC SCH ×2 (08:00→20:00)
[2020-05-18 10:53] VITALS: BP 120/67
--- NOTE | 2020-05-18 18:35 | NUR ---
Problems reprioritized. Patient report given, questions answered & plan of care reviewed with MYRNA RN.
[2020-05-18 19:30] VITALS: BP 133/70
--- NOTE | 2020-05-18 19:30 | NUR ---
pt reports scrotal swelling has decreased since admission Addendum: 05/18/20 at 2204 by Abby Okeefe RN Amended: Links added.
[2020-05-19] MEDS: HYDROcodone/acetaminophen 10/325mg tab PO PRN ×3 (04:51→14:16)
[2020-05-19 07:00] VITALS: BP 118/74
[2020-05-19] MEDS: K and/or MAG REPLACEMENT MC SCH (08:00)
[2020-05-19] MEDS: linezolid 600mg tablet PO SCH (09:02)
[2020-05-19] MEDS: lactobacillus rhamnosus 10,000 MMU CELLS/CAPSULE PO SCH (09:02)
[2020-05-19] MEDS: mineral oil/petrolatum, white cream 113gm jar TP SCH (09:02)
[2020-05-19] MEDS: heparin, porcine 5000 units/ml vial SQ SCH (09:02)
[2020-05-19] MEDS: HYDROmorphone 1 mg/ml syringe IV PRN ×2 (09:19→10:39)
[2020-05-19] MEDS ORDERED: LIDOcaine 4% (40 mg/ml) topical solution 50ml TP PRN (09:20)
--- NOTE | 2020-05-19 09:20 | NUR ---
PULL DILAUDID FOR WOUND VAC CHANGE HELD FOR SHOWER TO GIVE BEFORE WOUND VAC CHANGE
[2020-05-19] MEDS ORDERED: LACT1CAP26 PO (11:41)
[2020-05-19] MEDS ORDERED: HYDR-4383 PO ×2 (11:41→15:00)
[2020-05-19] MEDS ORDERED: LINE600T14 PO (11:41)
--- NOTE | 2020-05-19 15:39 | NUR ---
Discussed discharge instructions with patient, PIV removed with cannula intact. Patient was given prescription for Smoot and a copy was placed in the chart. Patient was given time for questions and answers and stated an understanding. Patient was also told about his appointment at the wound clinic and he stated an understanding of what to bring to the appointment and where to check in when he gets here. Patient is now awaiting an ride from [employer].
== END 2020-05-19 15:50 | disposition home or self-care (01) | DRG 720 ==
LOC: ER 19:26 → ED HOLD 23:29 → UNDOADMIN 23:36 → SUR 3N 05-07 05:05 → ED HOLD 05-07 05:05 → SUR 3N 05-07 05:24
PROVIDERS: ADMIT Internal Medicine; ATTEND Internal Medicine
PROC: BW2G1ZZ Computerized Tomography (CT Scan) of Pelvic Region using Low Osmolar Contrast (ICD-10-PCS; 2020-05-06)
PROC: 0JBC0ZZ Excision of Pelvic Region Subcutaneous Tissue and Fascia, Open Approach (ICD-10-PCS; principal; 2020-05-14 14:44)
DX: A41.9 Sepsis, unspecified organism (principal); N17.9 Acute kidney failure, unspecified; L02.214 Cutaneous abscess of groin; L03.314 Cellulitis of groin; E87.6 Hypokalemia; F12.90 Cannabis use, unspecified, uncomplicated; L03.311 Cellulitis of abdominal wall; G89.29 Other chronic pain; M54.9 Dorsalgia, unspecified; N45.1 Epididymitis; Z59.0 Homelessness; Z86.011 Personal history of benign neoplasm of the brain
CPT/HCPCS: 36415; 72193; 76870; 80053; 80061; 80305; 81001; 82948; 83036; 83690; 83735; 84100; 84132; 84145; 84443; 85025; 85610; 85730; 86703; 87040; 87070; 87075; 87077; 87081; 87102; 87186; 93005; 93976; 99285; A4618; A6253; A6446; A6449; A7000; G0378; J0692; J0696; J1100; J1170; J1644; J1885; J2001; J2020; J2175; J2250; J2270; J2405; J2704; J3010; J3480; J3490; J7030; J7120; Q9967

== ENCOUNTER 2020-05-20 15:43 | Emergency (ER) | payer MEDICAID ==
[~2020-05-20] VITALS: Ht 188 cm; Wt 109.1 kg
[~2020-05-20 15:43] MED LIST: HYDR-4383 PO; LACT1CAP26 PO; LINE600T14 PO
[2020-05-20 18:06] VITALS: BP 128/84
== END 2020-05-20 19:21 | disposition home or self-care (01) ==
LOC: ER 15:44
DX: L02.214 Cutaneous abscess of groin (principal); Z48.01 Encounter for change or removal of surgical wound dressing; Z98.890 Other specified postprocedural states; Z79.899 Other long term (current) drug therapy
CPT/HCPCS: 99281

== ENCOUNTER 2020-05-21 12:00 | Day surgery (SDC) | payer MEDICAID ==
[2020-05-21] MEDS ORDERED: LIDOcaine 2% 5ml jelly ONE ×3 (13:55→14:16)
== END 2020-05-21 15:33 | disposition home or self-care (01) ==
LOC: WOUND CARE 12:00
PROVIDERS: ATTEND Nurse Practitioner
DX: T81.89XA Other complications of procedures, not elsewhere classified, initial encounter (principal); L98.492 Non-pressure chronic ulcer of skin of other sites with fat layer exposed; E87.6 Hypokalemia; G89.29 Other chronic pain; F17.200 Nicotine dependence, unspecified, uncomplicated; F12.90 Cannabis use, unspecified, uncomplicated; Z87.820 Personal history of traumatic brain injury; Z79.899 Other long term (current) drug therapy; Z98.890 Other specified postprocedural states; Z85.841 Personal history of malignant neoplasm of brain; Y92.238 Other place in hospital as the place of occurrence of the external cause; Y83.8 Other surgical procedures as the cause of abnormal reaction of the patient, or of later complication, without mention of misadventure at the time of the procedure
CPT/HCPCS: 97597; 97598

== ENCOUNTER 2020-05-23 12:58 | Day surgery (SDC) | payer MEDICAID ==
[2020-05-23] MEDS ORDERED: LIDOcaine 2% 5ml jelly ONE (13:21)
== END 2020-05-23 14:30 | disposition home or self-care (01) ==
LOC: WOUND CARE 12:58
PROVIDERS: ATTEND Nurse Practitioner
DX: T81.89XD Other complications of procedures, not elsewhere classified, subsequent encounter (principal); L98.492 Non-pressure chronic ulcer of skin of other sites with fat layer exposed; L97.122 Non-pressure chronic ulcer of left thigh with fat layer exposed; L02.214 Cutaneous abscess of groin; G89.29 Other chronic pain; F17.210 Nicotine dependence, cigarettes, uncomplicated; F12.90 Cannabis use, unspecified, uncomplicated; Z79.899 Other long term (current) drug therapy; Z98.890 Other specified postprocedural states; Z85.841 Personal history of malignant neoplasm of brain; Z87.820 Personal history of traumatic brain injury; Z86.14 Personal history of Methicillin resistant Staphylococcus aureus infection; Y83.8 Other surgical procedures as the cause of abnormal reaction of the patient, or of later complication, without mention of misadventure at the time of the procedure
CPT/HCPCS: 97597; 97598

== ENCOUNTER 2020-05-26 13:25 | Day surgery (SDC) | payer MEDICAID ==
[2020-05-26] MEDS ORDERED: LIDOcaine 2% 5ml jelly ONE (13:48)
== END 2020-05-26 14:29 | disposition home or self-care (01) ==
LOC: WOUND CARE 13:25
PROVIDERS: ATTEND Nurse Practitioner Family
DX: T81.89XD Other complications of procedures, not elsewhere classified, subsequent encounter (principal); L98.492 Non-pressure chronic ulcer of skin of other sites with fat layer exposed; L97.122 Non-pressure chronic ulcer of left thigh with fat layer exposed; L02.214 Cutaneous abscess of groin; E87.6 Hypokalemia; G89.29 Other chronic pain; F17.210 Nicotine dependence, cigarettes, uncomplicated; F12.90 Cannabis use, unspecified, uncomplicated; Z87.820 Personal history of traumatic brain injury; Z79.899 Other long term (current) drug therapy; Z98.890 Other specified postprocedural states; Z85.841 Personal history of malignant neoplasm of brain; Y83.8 Other surgical procedures as the cause of abnormal reaction of the patient, or of later complication, without mention of misadventure at the time of the procedure
CPT/HCPCS: 97597; 97598

== ENCOUNTER 2022-12-22 00:34 | Emergency (ER) | payer MEDICAID ==
[~2022-12-22] VITALS: Ht 188 cm; Wt 93.0 kg
--- NOTE | 2022-12-22 00:43 | NUR ---
PATIENT IN ED LOBBY BATHROOM REGISTRATION WILL CALL ME WHEN PATIENT IS OUT OF RESTROOM TO BE TRIAGED
[2022-12-22 00:48] VITALS: BP 139/65
[2022-12-22] MEDS ORDERED: KEN0.1O TP (01:27)
== END 2022-12-22 01:50 | disposition home or self-care (01) ==
LOC: ER 00:35
DX: M79.641 Pain in right hand (principal); Z98.890 Other specified postprocedural states; Z79.899 Other long term (current) drug therapy
CPT/HCPCS: 99283

== ENCOUNTER 2023-12-18 17:42 | Emergency (ER) | payer MEDICAID ==
[~2023-12-18] VITALS: Ht 188 cm; Wt 90.9 kg
[2023-12-18 18:27] VITALS: BP 108/57; PULSE 78; RESP 16; TEMP 98.4; O2SAT 100
== END 2023-12-18 21:34 | disposition home or self-care (01) ==
LOC: ER 17:43
DX: M79.672 Pain in left foot (principal); M25.561 Pain in right knee; M25.562 Pain in left knee; M25.531 Pain in right wrist; Z79.899 Other long term (current) drug therapy; W19.XXXA Unspecified fall, initial encounter; Y93.89 Activity, other specified; Y92.89 Other specified places as the place of occurrence of the external cause; Y99.8 Other external cause status
CPT/HCPCS: 99284

== ENCOUNTER 2023-12-27 15:25 | Emergency (ER) | payer MEDICAID ==
[~2023-12-27] VITALS: Ht 188 cm; Wt 72.7 kg
[2023-12-27] MEDS ORDERED: acetaminophen 325mg tablet PO ONE (20:45)
[2023-12-27] MEDS ORDERED: loperamide 2mg capsule PO ONE (20:45)
[2023-12-27] MEDS ORDERED: ondansetron 4mg rapidly disintigrating tab PO ONE (20:45)
[2023-12-27] MEDS ORDERED: LOPE-190 PO ×2 (20:51)
[2023-12-27 21:19] VITALS: BP 97/60; PULSE 72; RESP 16; TEMP 97.6; O2SAT 99
== END 2023-12-27 21:17 | disposition home or self-care (01) ==
LOC: ER 15:26
DX: R19.7 Diarrhea, unspecified (principal); Z59.00 Homelessness unspecified; Z79.899 Other long term (current) drug therapy
CPT/HCPCS: 99284

== ENCOUNTER 2023-12-28 22:29 | Inpatient (IN) | payer MEDICAID ==
[~2023-12-28] VITALS: Ht 188 cm; Wt 87.0 kg
[~2023-12-28 22:29] MED LIST changes: +LOPE-190 PO
[2023-12-28] MEDS ORDERED: vancomycin/NS 1 GM ADD-VANTAGE 250 ML IV ONE (23:45)
[2023-12-28] MEDS ORDERED: normal saline 1000ML IV soln IVB ONE (23:45)
[2023-12-28] MEDS ORDERED: piperacillin/tazo 3.375gm/50ml 50 ML IV ONE (23:45)
[2023-12-29] MEDS ORDERED: CefTRIAXone/D5W-Rocephin 1gm 50 ML IV ONE
[2023-12-29] MEDS ORDERED: acetaminophen 325mg tablet PO ONE (00:05)
[2023-12-29 00:06] LABS: ALBUMIN 4.4 G/DL (3.4-5.0); ANION GAP 21 (8-16); BLOOD UREA NITROGEN 63 MG/DL (7-18); BUN/CREATININE RATIO 10.2 (10.0-20.0); CALCIUM 10.2 MG/DL (8.5-10.1); CHLORIDE 90 MMOL/L (99-107); GLUCOSE 151 MG/DL (70-104); POTASSIUM 3.3 MMOL/L (3.5-5.1); SODIUM 132 MMOL/L (135-145); TOTAL CARBON DIOXIDE 20.7 MMOL/L (24-32); eCRCL 15 ML/MIN; eGFR 9 ML/MIN
[2023-12-29 00:09] LABS: BASOPHILS # (AUTO) 0.1 X10'3 (0-0.2); BASOPHILS % (AUTO) 0.2 % (0-1); EOSINOPHILS % (AUTO) 0.1 % (0-6); HEMATOCRIT 50.8 % (42.0-52.0); HEMOGLOBIN 17.6 g/dl (14.0-17.9); LYMPHOCYTES # (AUTO) 1.9 X10'3 (1.1-4.8); LYMPHOCYTES % (AUTO) 7.6 % (21-51); MEAN CORPUSCULAR HEMOGLOBIN 29.3 PG (27.0-31.0); MEAN CORPUSCULAR HGB CONC 34.7 g/dL (33.0-36.5); MEAN CORPUSCULAR VOLUME 84.5 FL (78-98); MEAN PLATELET VOLUME 8.9 FL (7.4-10.4); MONOCYTES # (AUTO) 2.1 X10'3 (0-0.9); MONOCYTES % (AUTO) 8.4 % (2-12); NEUTROPHILS # (AUTO) 20.8 X10'3 (1.8-7.7); NEUTROPHILS % (AUTO) 83.7 % (42-75); PLATELET COUNT 428 X10'3 (140-440); RED BLOOD COUNT 6.01 X10'6 (4.70-6.10); RED CELL DISTRIBUTION WIDTH 14.7 % (11.5-14.5); WHITE BLOOD COUNT 24.8 X10'3 (4.5-11.0)
[2023-12-29] MEDS ORDERED: potassium Cl 40MEQ/1/2NS 520ml 520 ML IV ONE (00:20)
[2023-12-29 00:42] LABS: TOTAL CELLS COUNTED 100
[2023-12-29 00:43] LABS: PLATELET ESTIMATE NORMAL
[2023-12-29] MEDS ORDERED: normal saline 1000ML IV soln IVB ONE (01:25)
[2023-12-29] MEDS ORDERED: piperacillin/tazo 3.375gm/50ml 50 ML IV ONE (01:25)
[2023-12-29 01:53] LABS: ALANINE AMINOTRANSFERASE 19 U/L (12-78); ALBUMIN 3.2 G/DL (3.4-5.0); ALBUMIN/GLOBULIN RATIO 0.7 (1.1-1.5); ALKALINE PHOSPHATASE 109 IU/L (46-116); ANION GAP 18 (8-16); ASPARTATE AMINO TRANSFERASE 11 U/L (10-37); BILIRUBIN,TOTAL 0.4 MG/DL (0.1-1.0); BLOOD UREA NITROGEN 61 MG/DL (7-18); BUN/CREATININE RATIO 11.4 (10.0-20.0); CALCIUM 8.2 MG/DL (8.5-10.1); CHLORIDE 96 MMOL/L (99-107); CREATININE 5.34 MG/DL (0.60-1.10); GLUCOSE 102 MG/DL (70-104); MAGNESIUM 2.3 MG/DL (1.5-2.4); SODIUM 134 MMOL/L (135-145); TOTAL CARBON DIOXIDE 20.4 MMOL/L (24-32); TOTAL PROTEIN 7.6 G/DL (6.4-8.2); eCRCL 17 ML/MIN; eGFR 11 ML/MIN
[2023-12-29 02:05] LABS: POTASSIUM 2.2 MMOL/L (3.5-5.1)
[2023-12-29] MEDS ORDERED: NO HOME MEDS (02:13)
[2023-12-29] MEDS ORDERED: magnesium 2GM in 50ml NS 50 ML IV PRN ×2 (02:25→23:15)
[2023-12-29] MEDS ORDERED: potassium Cl 20 mEq SR tablet PO PRN ×4 (02:25→23:15)
[2023-12-29] MEDS ORDERED: magnesium Cl slow-release 64mg tablet PO PRN ×2 (02:25→23:15)
[2023-12-29] MEDS ORDERED: acetaminophen 325mg tablet PO PRN (02:25)
[2023-12-29] MEDS ORDERED: magnesium 4gm in 100ml NS 100 ML IV PRN ×2 (02:25→23:15)
[2023-12-29] MEDS ORDERED: mag hydrox/Alum hydrox/simeth 30ml oral suspension PO PRN (02:25)
[2023-12-29] MEDS ORDERED: magnesium hydroxide 30ml (MOM) UD suspension PO PRN (02:25)
[2023-12-29] MEDS ORDERED: ondansetron/PF 4mg/2ml inj IV PRN (02:25)
[2023-12-29 03:38] LABS: PHOSPHORUS 6.3 MG/DL (2.3-4.5)
[2023-12-29 03:41] LABS: HEMOGLOBIN A1C 5.1 % (4.5-6.2)
[2023-12-29] MEDS: normal saline 1000ml 1,000 ML IV SCH ×3 (04:45→22:56)
[2023-12-29 04:55] LABS: BILIRUBIN,URINE NEGATIVE (Neg); CLARITY,URINE CLOUDY (Clear); COLOR,URINE YELLOW (Yellow); GLUCOSE, URINE NEGATIVE (Neg); KETONES,URINE TRACE mg/dl (Neg); LEUKOCYTE ESTERASE ,URINE SMALL (Neg); NITRITES, URINE POSITIVE (Neg); OCCULT BLOOD,URINE MODERATE (Neg); PH,URINE 5.5 (4.8-8.0); PROTEIN,URINE >=300 mg/dl (Neg); UROBILINOGEN,URINE 0.2 E.U/dL (0.2-1.0)
[2023-12-29 05:01] LABS: UA COLLECTION TYPE CLN CATCH MIDSTREAM
[2023-12-29 05:05] LABS: AMORPHOUS URATES 1+; BACTERIA,URINE 4+ /HPF (Neg); MUCUS STRANDS FEW /LPF (Neg); SQUAMOUS EPITHELIAL CELL,UR FEW /LPF (FEW); TRANSITIONAL EPI CELLS,URINE FEW /HPF; WBC,URINE TNTC /HPF (0-4)
[2023-12-29 05:06] LABS: CAL OXALATE CRYSTALS FEW /HPF (NEGATIVE)
[2023-12-29 05:11] LABS: URINE AMPHETAMINE SCREEN POSITIVE (Neg); URINE BARBITUATE SCREEN NEGATIVE (Neg); URINE BENZODIAZEPINES SCREEN NEGATIVE (Neg); URINE CANNABINOID SCREEN POSITIVE (Neg); URINE COCAINE SCREEN NEGATIVE (Neg); URINE METHADONE SCREEN NEGATIVE (Neg); URINE OPIATE SCREEN NEGATIVE (Neg); URINE PHENCYCLIDINE SCREEN NEGATIVE (Neg)
[2023-12-29] MEDS: K and/or MAG REPLACEMENT MC SCH ×2 (08:00→19:19)
[2023-12-29] MEDS: heparin, porcine 5000 units/ml vial SQ SCH ×2 (09:37→19:27)
[2023-12-29 11:59] VITALS: BP 95/54; PULSE 74; RESP 16; TEMP 98.3; O2SAT 100
[2023-12-29 12:04] LABS: C DIFF ANTIGEN NEGATIVE (NEGATIVE); C DIFF SPECIMEN=DIARRHEA? ACCEPTABLE; C DIFFICILE TOXINS A&B NEGATIVE (Neg)
[2023-12-29] MEDS: potassium Cl 40MEQ/1/2NS 520ml 520 ML IV PRN ×2 (12:21→19:28)
[2023-12-29] MEDS: piperacillin/tazo 3.375gm/50ml 50 ML IV SCH (14:07)
[2023-12-29] MEDS ORDERED: vancomycin/NS 1 GM ADD-VANTAGE 250 ML IV PRN (15:05)
[2023-12-29] MEDS ORDERED: LOPE2CAP (15:49)
[2023-12-29] MEDS ORDERED: potassium Cl 40MEQ/1/2NS 520ml 520 ML IV PRN (23:15)
[2023-12-29 23:59] VITALS: BP 95/54; PULSE 74; RESP 16; TEMP 98.3; O2SAT 100
[2023-12-30] VITALS (8 sets, daily range): BP systolic 84–126; BP diastolic 42–90; PULSE 67–96; RESP 13–17; TEMP 97.3–99.3; O2SAT 94–100
[2023-12-30 01:32] LABS: ALBUMIN 2.7 G/DL (3.4-5.0); ANION GAP 15 (8-16); BLOOD UREA NITROGEN 52 MG/DL (7-18); BUN/CREATININE RATIO 17.7 (10.0-20.0); CALCIUM 8.1 MG/DL (8.5-10.1); CHLORIDE 106 MMOL/L (99-107); CREATININE 2.94 MG/DL (0.60-1.10); GLUCOSE 98 MG/DL (70-104); SODIUM 136 MMOL/L (135-145); TOTAL CARBON DIOXIDE 15.3 MMOL/L (24-32); eCRCL 33 ML/MIN; eGFR 22 ML/MIN
[2023-12-30] MEDS: piperacillin/tazo 3.375gm/50ml 50 ML IV SCH ×2 (02:46→14:19)
[2023-12-30] MEDS: potassium Cl 40MEQ/1/2NS 520ml 520 ML IV PRN ×2 (02:47→10:07)
[2023-12-30] MEDS: VANCOMYCIN LEVEL IV SCH (03:00)
[2023-12-30 06:32] LABS: BASOPHILS % (AUTO) 0.2 % (0-1); EOSINOPHILS # (AUTO) 0.1 X10'3 (0-0.9); EOSINOPHILS % (AUTO) 0.5 % (0-6); HEMATOCRIT 33.5 % (42.0-52.0); HEMOGLOBIN 11.4 g/dl (14.0-17.9); LYMPHOCYTES # (AUTO) 1.8 X10'3 (1.1-4.8); LYMPHOCYTES % (AUTO) 16.6 % (21-51); MEAN CORPUSCULAR HEMOGLOBIN 29.1 PG (27.0-31.0); MEAN CORPUSCULAR VOLUME 85.5 FL (78-98); MEAN PLATELET VOLUME 8.6 FL (7.4-10.4); MONOCYTES # (AUTO) 0.7 X10'3 (0-0.9); MONOCYTES % (AUTO) 6.5 % (2-12); NEUTROPHILS # (AUTO) 8.1 X10'3 (1.8-7.7); NEUTROPHILS % (AUTO) 76.2 % (42-75); PLATELET COUNT 191 X10'3 (140-440); RED BLOOD COUNT 3.91 X10'6 (4.70-6.10); RED CELL DISTRIBUTION WIDTH 14.9 % (11.5-14.5); WHITE BLOOD COUNT 10.7 X10'3 (4.5-11.0)
[2023-12-30 06:51] LABS: ALANINE AMINOTRANSFERASE 18 U/L (12-78); ALBUMIN 2.5 G/DL (3.4-5.0); ALBUMIN/GLOBULIN RATIO 0.7 (1.1-1.5); ALKALINE PHOSPHATASE 84 IU/L (46-116); ANION GAP 10 (8-16); ASPARTATE AMINO TRANSFERASE 14 U/L (10-37); BILIRUBIN,TOTAL 0.2 MG/DL (0.1-1.0); BLOOD UREA NITROGEN 45 MG/DL (7-18); CALCIUM 7.6 MG/DL (8.5-10.1); CHLORIDE 109 MMOL/L (99-107); CHOL/HDL RATIO 3.8 (0.00-4.99); CHOLESTEROL 98 MG/DL (0-200); GLUCOSE 98 MG/DL (70-104); HDL CHOLESTEROL 26 MG/DL (35-60); LDL CHOLESTEROL 52 MG/DL (50-100); SODIUM 139 MMOL/L (135-145); TOTAL CARBON DIOXIDE 20.4 MMOL/L (24-32); TOTAL PROTEIN 6.1 G/DL (6.4-8.2); TRIGLYCERIDES 128 MG/DL (20-135); eCRCL 39 ML/MIN; eGFR 27 ML/MIN
[2023-12-30] MEDS ORDERED: vancomycin/NS 1 GM ADD-VANTAGE 250 ML IV ONE (06:55)
[2023-12-30] MEDS: K and/or MAG REPLACEMENT MC SCH ×4 (06:59→19:59)
[2023-12-30 07:12] LABS: POTASSIUM 2.7 MMOL/L (3.5-5.1)
[2023-12-30] MEDS: heparin, porcine 5000 units/ml vial SQ SCH ×2 (07:58→20:13)
[2023-12-30] MEDS: normal saline 1000ml 1,000 ML IV SCH (08:00)
[2023-12-30] MEDS: loperamide 2mg capsule PO PRN (14:34)
[2023-12-30] MEDS: potassium Cl 20mEq in NS 1,000 ML IV SCH (17:10)
[2023-12-31] VITALS (7 sets, daily range): BP systolic 95–116; BP diastolic 55–64; PULSE 70–85; RESP 13–22; TEMP 97.8–98.6; O2SAT 96–100
[2023-12-31] MEDS: potassium Cl 20mEq in NS 1,000 ML IV SCH ×3 (01:55→21:29)
[2023-12-31] MEDS: piperacillin/tazo 3.375gm/50ml 50 ML IV SCH ×2 (02:55→14:07)
[2023-12-31] MEDS: VANCOMYCIN LEVEL IV SCH (03:00)
[2023-12-31 03:55] LABS: ALBUMIN 2.4 G/DL (3.4-5.0); ANION GAP 10 (8-16); BILIRUBIN,TOTAL 0.2 MG/DL (0.1-1.0); BLOOD UREA NITROGEN 36 MG/DL (7-18); BUN/CREATININE RATIO 23.7 (10.0-20.0); CALCIUM 8.1 MG/DL (8.5-10.1); CHLORIDE 108 MMOL/L (99-107); CREATININE 1.52 MG/DL (0.60-1.10); GLUCOSE 96 MG/DL (70-104); POTASSIUM 3.3 MMOL/L (3.5-5.1); SODIUM 139 MMOL/L (135-145); TOTAL CARBON DIOXIDE 20.9 MMOL/L (24-32); TOTAL PROTEIN 6.3 G/DL (6.4-8.2); eCRCL 65 ML/MIN; eGFR 48 ML/MIN
[2023-12-31 03:56] LABS: ALANINE AMINOTRANSFERASE 18 U/L (12-78); ALBUMIN/GLOBULIN RATIO 0.6 (1.1-1.5); ALKALINE PHOSPHATASE 76 IU/L (46-116); ASPARTATE AMINO TRANSFERASE 10 U/L (10-37)
[2023-12-31 05:46] LABS: BASOPHILS % (AUTO) 0.3 % (0-1); EOSINOPHILS # (AUTO) 0.1 X10'3 (0-0.9); EOSINOPHILS % (AUTO) 0.8 % (0-6); HEMATOCRIT 32.6 % (42.0-52.0); HEMOGLOBIN 11.1 g/dl (14.0-17.9); LYMPHOCYTES # (AUTO) 1.7 X10'3 (1.1-4.8); LYMPHOCYTES % (AUTO) 20.9 % (21-51); MEAN CORPUSCULAR HEMOGLOBIN 29.2 PG (27.0-31.0); MEAN CORPUSCULAR HGB CONC 34.1 g/dL (33.0-36.5); MEAN CORPUSCULAR VOLUME 85.6 FL (78-98); MEAN PLATELET VOLUME 9.1 FL (7.4-10.4); MONOCYTES # (AUTO) 0.7 X10'3 (0-0.9); MONOCYTES % (AUTO) 8.3 % (2-12); NEUTROPHILS # (AUTO) 5.7 X10'3 (1.8-7.7); NEUTROPHILS % (AUTO) 69.7 % (42-75); PLATELET COUNT 162 X10'3 (140-440); RED CELL DISTRIBUTION WIDTH 15.2 % (11.5-14.5); WHITE BLOOD COUNT 8.3 X10'3 (4.5-11.0)
[2023-12-31] MEDS: K and/or MAG REPLACEMENT MC SCH ×4 (06:41→20:00)
[2023-12-31] MEDS: loperamide 2mg capsule PO PRN ×3 (07:00→21:24)
[2023-12-31] MEDS: heparin, porcine 5000 units/ml vial SQ SCH ×2 (07:03→21:22)
[2023-12-31] MEDS: vancomycin/NS 1 GM ADD-VANTAGE 250 ML IV SCH (13:36)
[2023-12-31] MEDS: HYDROcodone/acetaminophen 5mg/325mg tablet PO PRN (13:37)
[2024-01-01] VITALS (8 sets, daily range): BP systolic 101–119; BP diastolic 58–79; PULSE 71–78; RESP 14–19; TEMP 97.8–99.9; O2SAT 95–100
[2024-01-01] MEDS: piperacillin/tazo 3.375gm/50ml 50 ML IV SCH (01:50)
[2024-01-01] MEDS: vancomycin/NS 1 GM ADD-VANTAGE 250 ML IV SCH (01:58)
[2024-01-01 06:10] LABS: BASOPHILS % (AUTO) 0.8 % (0-1); EOSINOPHILS % (AUTO) 0.8 % (0-6); HEMATOCRIT 33.7 % (42.0-52.0); HEMOGLOBIN 11.4 g/dl (14.0-17.9); LYMPHOCYTES # (AUTO) 1.2 X10'3 (1.1-4.8); LYMPHOCYTES % (AUTO) 22.4 % (21-51); MEAN CORPUSCULAR HEMOGLOBIN 29.3 PG (27.0-31.0); MEAN CORPUSCULAR HGB CONC 33.8 g/dL (33.0-36.5); MEAN CORPUSCULAR VOLUME 86.7 FL (78-98); MEAN PLATELET VOLUME 9.3 FL (7.4-10.4); MONOCYTES # (AUTO) 0.5 X10'3 (0-0.9); MONOCYTES % (AUTO) 9.4 % (2-12); NEUTROPHILS # (AUTO) 3.6 X10'3 (1.8-7.7); NEUTROPHILS % (AUTO) 66.6 % (42-75); PLATELET COUNT 131 X10'3 (140-440); RED BLOOD COUNT 3.88 X10'6 (4.70-6.10); RED CELL DISTRIBUTION WIDTH 15.3 % (11.5-14.5); WHITE BLOOD COUNT 5.4 X10'3 (4.5-11.0)
[2024-01-01 07:14] LABS: BLOOD UREA NITROGEN 22 MG/DL (7-18); BUN/CREATININE RATIO 19.6 (10.0-20.0); CHLORIDE 111 MMOL/L (99-107); CREATININE 1.12 MG/DL (0.60-1.10); GLUCOSE 85 MG/DL (70-104); POTASSIUM 4.4 MMOL/L (3.5-5.1); SODIUM 139 MMOL/L (135-145); eCRCL 88 ML/MIN; eGFR 68 ML/MIN
[2024-01-01 07:17] LABS: ALANINE AMINOTRANSFERASE 16 U/L (12-78); ALBUMIN 2.4 G/DL (3.4-5.0); ALBUMIN/GLOBULIN RATIO 0.6 (1.1-1.5); ALKALINE PHOSPHATASE 72 IU/L (46-116); ANION GAP 6 (8-16); ASPARTATE AMINO TRANSFERASE 13 U/L (10-37); BILIRUBIN,TOTAL 0.2 MG/DL (0.1-1.0); CALCIUM 8.1 MG/DL (8.5-10.1); TOTAL CARBON DIOXIDE 22.3 MMOL/L (24-32); TOTAL PROTEIN 6.3 G/DL (6.4-8.2)
[2024-01-01] MEDS: K and/or MAG REPLACEMENT MC SCH ×4 (07:35→20:00)
[2024-01-01] MEDS: loperamide 2mg capsule PO PRN (07:40)
[2024-01-01] MEDS: heparin, porcine 5000 units/ml vial SQ SCH ×2 (07:41→21:19)
[2024-01-01] MEDS ORDERED: levoFLOXACIN 250mg tablet PO ONE (10:00)
[2024-01-01] MEDS ORDERED: levoFLOXACIN 500mg tablet PO ONE (10:05)
[2024-01-01] MEDS: potassium Cl 20mEq in NS 1,000 ML IV SCH ×2 (11:01→21:20)
[2024-01-01] MEDS ORDERED: LEVO-65 PO (17:08)
[2024-01-01] MEDS ORDERED: METR-159 PO (17:08)
[2024-01-01] MEDS: HYDROcodone/acetaminophen 5mg/325mg tablet PO PRN (21:19)
[2024-01-02] MEDS: metroNIDAZOLE 500mg tablet PO SCH ×2 (00:06→08:58)
[2024-01-02] MEDS ORDERED: VANCOMYCIN LEVEL IV ONE (00:30)
[2024-01-02 02:00] VITALS: BP 106/73; PULSE 81; RESP 17; TEMP 98.3; O2SAT 100
[2024-01-02] MEDS: potassium Cl 20mEq in NS 1,000 ML IV SCH (06:30)
[2024-01-02 06:35] LABS: ALANINE AMINOTRANSFERASE 19 U/L (12-78); ALBUMIN 2.4 G/DL (3.4-5.0); ALBUMIN/GLOBULIN RATIO 0.6 (1.1-1.5); ALKALINE PHOSPHATASE 68 IU/L (46-116); ANION GAP 5 (8-16); ASPARTATE AMINO TRANSFERASE 12 U/L (10-37); BILIRUBIN,TOTAL 0.2 MG/DL (0.1-1.0); BLOOD UREA NITROGEN 22 MG/DL (7-18); BUN/CREATININE RATIO 21.8 (10.0-20.0); CALCIUM 8.4 MG/DL (8.5-10.1); CHLORIDE 108 MMOL/L (99-107); CREATININE 1.01 MG/DL (0.60-1.10); GLUCOSE 102 MG/DL (70-104); POTASSIUM 4.5 MMOL/L (3.5-5.1); SODIUM 139 MMOL/L (135-145); TOTAL CARBON DIOXIDE 25.9 MMOL/L (24-32); TOTAL PROTEIN 6.4 G/DL (6.4-8.2); eCRCL 97 ML/MIN; eGFR 77 ML/MIN
[2024-01-02 06:49] LABS: BASOPHILS % (AUTO) 0.5 % (0-1); EOSINOPHILS # (AUTO) 0.1 X10'3 (0-0.9); EOSINOPHILS % (AUTO) 1.2 % (0-6); HEMATOCRIT 33.5 % (42.0-52.0); HEMOGLOBIN 11.4 g/dl (14.0-17.9); LYMPHOCYTES # (AUTO) 1.1 X10'3 (1.1-4.8); LYMPHOCYTES % (AUTO) 16.7 % (21-51); MEAN CORPUSCULAR HGB CONC 33.9 g/dL (33.0-36.5); MEAN CORPUSCULAR VOLUME 85.4 FL (78-98); MEAN PLATELET VOLUME 9.1 FL (7.4-10.4); MONOCYTES # (AUTO) 0.6 X10'3 (0-0.9); MONOCYTES % (AUTO) 8.6 % (2-12); NEUTROPHILS # (AUTO) 4.8 X10'3 (1.8-7.7); PLATELET COUNT 158 X10'3 (140-440); RED BLOOD COUNT 3.92 X10'6 (4.70-6.10); RED CELL DISTRIBUTION WIDTH 14.9 % (11.5-14.5); WHITE BLOOD COUNT 6.6 X10'3 (4.5-11.0)
[2024-01-02 07:00] VITALS: BP 108/71; PULSE 77; RESP 16; TEMP 98.3; O2SAT 99
[2024-01-02] MEDS: K and/or MAG REPLACEMENT MC SCH ×2 (08:00)
[2024-01-02] MEDS: heparin, porcine 5000 units/ml vial SQ SCH (08:58)
[2024-01-02 11:00] VITALS: BP 98/61; PULSE 83; RESP 12; TEMP 98.4; O2SAT 100
== END 2024-01-02 15:30 | disposition home or self-care (01) | DRG 720 ==
LOC: ER 22:30 → ED HOLD 12-29 02:28 → PCU 3S 12-29 23:50
PROVIDERS: ADMIT Family Medicine; ATTEND Family Medicine
DX: A41.9 Sepsis, unspecified organism (principal); N17.0 Acute kidney failure with tubular necrosis; E87.20 Acidosis, unspecified; S72.112A Displaced fracture of greater trochanter of left femur, initial encounter for closed fracture; M87.9 Osteonecrosis, unspecified; B96.20 Unspecified Escherichia coli [E. coli] as the cause of diseases classified elsewhere; K52.9 Noninfective gastroenteritis and colitis, unspecified; Z20.822 Contact with and (suspected) exposure to COVID-19; N20.0 Calculus of kidney; N39.0 Urinary tract infection, site not specified; X58.XXXA Exposure to other specified factors, initial encounter; Y93.89 Activity, other specified; Y92.89 Other specified places as the place of occurrence of the external cause; Y99.8 Other external cause status; Z59.00 Homelessness unspecified; E87.6 Hypokalemia
CPT/HCPCS: 36415; 71045; 74176; 76770; 80048; 80053; 80061; 80202; 80305; 81001; 83036; 83605; 83735; 84100; 84132; 84145; 85007; 85025; 87040; 87077; 87081; 87088; 87186; 87324; 87449; 87502; 87503; 87811; 97161; 97530; 99285; C1758; G0378; J0696; J1644; J2543; J3370; J3480; J7030